=== PATIENT | female | born 1955 | race Caucasian/White ===

== ENCOUNTER → 2017-09-07 | Outpatient (CLI) | payer OTHER ==
[~2017-09-07] MED LIST: ACCUPRIL40 MG PO; ASPIRIN81 M1 PO; BENADRYL50 MG PO; CARVEDILOL25 MG PO; CLARITIN10 MG PO; COMPAZINE10 MG PO; DEXAMETHASONE4 MG PO; HYZAAR 100-251 EACH PO; LINZESS145 MCG PO; NEXIUM40 MG PO; NORVASC10 MG PO; OMEGA 3-6-9 11200 MG PO; ROXICET 5-3251 EACH PO; XANAX0.5 MG PO; ZANTAC150 M1 PO
== END | disposition home or self-care (01) ==
LOC: NUC 08:21
DX: R11.0 Nausea (principal); R14.0 Abdominal distension (gaseous); K21.9 Gastro-esophageal reflux disease without esophagitis; K59.00 Constipation, unspecified; K22.70 Barrett's esophagus without dysplasia
CPT/HCPCS: 78264; A9537